=== PATIENT | male | born 1980 | race Caucasian/White ===

== ENCOUNTER 2023-09-27 07:44 | Emergency (ER) | payer OTHER, SELFPAY ==
[2023-09-27 07:46] VITALS: BP 140/82
--- NOTE | 2023-09-27 08:12 | ED.GENMED ---
History of Present Illness
General
Chief Complaint: Anal/Rectal Problem
Source: patient
Exam Limitations: none
Time Seen by Provider: 09/27/23 08:08
Travel History
Have you had any contact with someone who has COVID-19?: No
Do you have any symptoms of coronavirus? Fever > 100 degrees, chills, cough, shortness of breath, sore throat, loss of taste or smell, muscle aches, or headache?: No
History of Present Illness
History of Present Illness:
See MDM
Past History
Past History
ED Past Medical History: None
ED Past Surgical History: None
Social History
Tobacco: Non-smoker
Alcohol: Occasional
Drug: None
Personal:
Living: with family
Employment: Employed
Family History
Family History: Other (Noncontributory)
Phy Exam
Physical Exam
Physical Exam:
See MDM
Course
Orders/Labs/Results
Orders:
Orders
09/27/23 08:12
CT Abd/pelvis W Iv Cont Urgent
Comment:
Reason For Exam: rectal pain
HYDROmorphone [Dilaudid] 1 mg IV NOW STA
09/27/23 08:32
Lidocaine 2% [Lidocaine Uro-Jet 2%] 1 syringe .ROUTE .STK-MED ONE
Lidocaine 2% [Lidocaine Uro-Jet 2%] 1 syringe TOPICAL NOW STA
09/27/23 08:36
Complete Blood Count/With Diff Urgent
09/27/23 10:00
Comprehensive Metabolic Panel Urgent
09/27/23 11:16
HYDROmorphone [Dilaudid] 1 mg .ROUTE .STK-MED ONE
HYDROmorphone [Dilaudid] 1 mg IV NOW STA
Abnormal Lab Results
09/27/23 09/27/23
08:36 10:00
RBC 4.55 L 10^6/uL
(4.70-6.10)
MCV 95.6 H fL
(80.0-94.0)
MCH 33.6 H pg
(27.0-31.0)
ALT 68 H U/L
(0-50)
Total Protein 6.2 L g/dl
(6.3-8.2)
09/27/23 08:36
09/27/23 10:00
Vital Signs
Initial and Last Documented VS:
Initial Vital Signs
Temp Pulse Resp BP Pulse Ox
97.7 F 60 16 140/82 99
09/27/23 07:46 09/27/23 07:46 09/27/23 07:46 09/27/23 07:46 09/27/23 07:46
Last Documented Vital Signs
Temp Pulse Resp BP Pulse Ox
97.7 F 62 16 116/74 98
09/27/23 07:46 09/27/23 09:09 09/27/23 09:09 09/27/23 11:00 09/27/23 11:15
MDM/Problems Addressed
Differential Diagnosis Includes:
HPI and MDM Narrative:
43-year-old male presenting with rectal pain. Patient has been doing this for 5 days. He states he has a history of internal hemorrhoids. He states he had seen someone to discuss removal of these hemorrhoids but opted out of it due to the concern
for recurrence.
On exam, patient is uncomfortable. Rectal exam performed and there is no evidence of external hemorrhoid or fissures. There is tenderness in the perirectal area. Will obtain CT to rule out deep space
Patient states he intermittently develops internal hemorrhoids that protrude forcing him to push them back in.
Physical exam
General: non-toxic
HEENT: protecting airway
Neck: appears supple
CV: No evidence of cyanosis
Resp: No accessory muscle use
Rectal: No fissure or hemorrhoid
Abd: Non-distended
Extremities: No deformities
Neuro: alert
Psych: Normal affect
Skin: Intact
Problems Addressed including Acute and Chronic Conditions affecting care:
1. Perirectal pain
Acuity: acute
Prognosis: stable
Details: Given the normal external exam, will obtain CT to rule out deep space infection
Updates
CT negative for acute pathology. I discussed incidental finding of diverticulosis. Discussed followed up with colorectal
Differential Diagnosis (but not limited to): Perirectal abscess, fissure
Testing considered: Stool studies but he denies diarrhea
Drug therapy (if applicable): OTC meds, please see d/c instruction regarding Rx drugs
Amount and/or Complexity of Data Reviewed
Clinical info obtained from: Patient
External data reviewed: N/A
Labs I independently reviewed (but not limited to): White blood cell count normal
Radiology: The CT scan was personally and independently reviewed. In addition, official CT report reviewed.
Pulse Ox: not hypoxic
EKG independently reviewed: N/A
Environmental Services Assistant: N/A
Critical Care: N/A
Risk of Complication:
Social Determinants of health: Good social support
Discussed with other providers: N/A
Escalation of Care includes Admit/Obs: After being observed in the Emergency Department, pt stable for discharge.
Occasional wrong word or 'sound a like' substitutions may have occurred due to the inherent limitations of voice recognition software. Read the chart carefully and recognize, using context, where substitutions have occurred.
*Critical Care Note
Total Time (30-74mins, 75-104mins- exclusive of procedures): Not Applicable
ED Attending Note
-
Portions of this chart may have been created with voice recognition software.� Occasional wrong word or��sound alike� substitutions may have occurred due to the inherent limitations of voice recognition software.
Discharge Plan
Departure
Patient Disposition: Home (Routine Discharge)
Date of Disposition: 09/27/23
Time of Disposition: 13:07
Patient with high blood pressure during this ER visit?: No
Discharge Problem:
Anal or rectal pain
Prescriptions:
New
diclofenac potassium 50 mg tablet
50 mg PO BID Qty: 20 0RF
oxycodone 5 mg tablet
5 mg PO Q8H PRN (Reason: Pain) Qty: 10 0RF
No Action
ibuprofen 600 MG tablet
600 mg PO Q6H Qty: 30 0RF
hydrocodone-acetaminophen 1 TABLET tablet
1 tab PO Q4HPRN PRN (Reason: severe pain) Qty: 10 0RF
Referrals:
Jaime Sun MD [Active] -
Apple Paris CRNP [Family Provider] -
Activity Restrictions/Additional Instructions:
Please return for any worsening symptoms.
You may return at any time if you have further concerns.
Please follow up with your doctor at the first available appointment, preferably this week.
Given your history of internal hemorrhoids that protrude, please make an appointment with the colorectal surgeon.
You were given a prescription for narcotics. If you require this pain medicine, please take a daily [id number] stool softener to avoid constipation.
Thank you for choosing [facility].
Interventions
Interventions:
*Risk Screen - Suicide Last Done: 09/27/23 07:56
*General Assessment Last Done: 09/27/23 07:46
*Neglect/Abuse Screening Last Done: 09/27/23 07:56
*ED COVID-19 Vaccine History Last Done: 09/27/23 07:46
JQ-Grsyxr-Pnxgttavbn Assessment Last Done: 09/27/23 07:57
ED-Skin Assessment Last Done: 09/27/23 07:57
[2023-09-27 08:43] LABS: % Basophils 0.5 % (0-2); % Eosinophils 3.4 % (0-6); % Immature Granulocytes 0.2 % (0-0.5); % Lymphocytes 25.8 % (20.5-51.1); % Monocytes 8.8 % (1.7-9.3); % Neutrophils 61.3 % (42.2-75.2); Absolute Eosinophils 0.2 10^3/uL (0-0.7); Absolute Lymphocytes 1.6 10^3/uL (1.2-3.4); Absolute Monocytes 0.6 10^3/uL (0.1-0.6); Absolute Neutrophils 3.8 10^3/uL (1.4-6.5); Hematocrit 43.5 % (39.0-52.0); Hemoglobin 15.3 g/dL (13.0-18.0); Mean Corp Hgb Conc. 35.2 g/dL (33.0-37.0); Mean Corpuscular Hgb 33.6 pg (27.0-31.0); Mean Corpuscular Volume 95.6 fL (80.0-94.0); Mean Platelet Volume 10.2 fL (7.4-10.4); Nucleated Red Blood Cells % 0 % (-); Platelet Count 247 10^3/uL (130-400); Red Blood Cell Count 4.55 10^6/uL (4.70-6.10); Red Cell Dist. Width 12.3 % (11.5-14.5); White Blood Cell Count 6.2 10^3/uL (4.8-10.8)
[2023-09-27] MEDS: DILAUDID 1 MG IV ×2 (08:44→11:19)
[2023-09-27] MEDS: LIDOCAINE URO-JET 2% 1 SYRINGE TOPICAL (08:44)
[2023-09-27 09:09] VITALS: BP 123/71
[2023-09-27 10:12] VITALS: BP 101/49
[2023-09-27 11:00] VITALS: BP 116/74
[2023-09-27 11:05] LABS: ALT (SGPT) 68 U/L (0-50); AST (SGOT) 42 U/L (17-59); Albumin 3.8 g/dl (3.5-5.0); Alkaline Phosphatase 58 U/L (38-126); Blood Urea Nitrogen 17 mg/dl (9-20); Calcium 9.5 mg/dl (8.4-10.2); Carbon Dioxide 24 mmol/L (22-30); Chloride 104 mmol/L (98-107); Glucose 99 mg/dl (70-99); Potassium 4.1 mmol/L (3.5-5.1); Sodium 139 mmol/L (135-145); Total Bilirubin 0.6 mg/dl (0.2-1.3); Total Protein 6.2 g/dl (6.3-8.2); eGFR > 60.00
== END 2023-09-27 13:10 | disposition home or self-care (01) ==
LOC: EMR 07:44
PROVIDERS: EMERGENCY PHYSICIAN Student in an Organized Health Care Education/Training Program; FAMILY PHYSICIAN Nurse Practitioner Family
DX: K62.89 Other specified diseases of anus and rectum (principal); K64.8 Other hemorrhoids; K57.90 Diverticulosis of intestine, part unspecified, without perforation or abscess without bleeding
CPT/HCPCS: 99285; 74177; 80053; 85025; Q9967

== ENCOUNTER 2024-03-12 09:56 | Emergency (ER) | payer OTHER, SELFPAY ==
[2024-03-12 10:03] VITALS: BP 112/75
[2024-03-12] MEDS: ADACEL 0.5 ML IM (10:37)
[2024-03-12] MEDS: MOTRIN 600 MG PO (10:37)
[2024-03-12] MEDS: KEFLEX 500 MG PO (10:37)
--- NOTE | 2024-03-12 10:58 | ED.GENMED ---
History of Present Illness
General
Chief Complaint: Skin Problem
Source: patient
Exam Limitations: none
Time Seen by Provider: 03/12/24 10:22
Nursing documentation reviewed up to this point in time: agreed with
History of Present Illness
History of Present Illness:
44-year-old male [id number] presents with right fourth finger MCP joint swelling after laceration 6 days ago on a piece of porcelain
it was not felt to be deep, and he did not blelieve there was any piece that could be inside
he cleaned it out and glued it with skin glue and it seemed to be doing well
he has been working a lot and after work yesterday he developed swelling to hte 4th MCP joint
he has pain with flexion and extension but is able to do both
no redness/streaking, no drainage, no fever/chills
no diabetes
ont a fight bite
Past History
Past History
ED Past Medical History: None
ED Past Surgical History: None
Social History
Tobacco: Non-smoker
Alcohol: Occasional
Drug: None
Personal:
Living: with family
Employment: Employed
Family History
Family History: Other (Noncontributory)
Review of Systems
Review of Systems
Allergies reviewed?: Yes
All Other Systems: Not applicable
Phy Exam
Physical Exam
Physical Exam:
GENERAL: Alert , in no apparent distress, comfortable at rest
HEAD: NCAT
CV: 2+ radial pulse, cap refill intact
NEUROLOGICAL: Alert and oriented, no focal neuro deficits, , 5/5 strength, sensation intact, ambulation slight limp right leg
SKIN: Warm and dry, small 1 cm laceraiton dorsum right 4th MCP joitn
with some STS around it approx 1.5 cm
soft, not fluctuant swelling
no signifiant erythema
no draniage
MUSCULOSKELETAL: sts around the small lacertion right 4th MCP joint dorsum
able to flex, flexor tendon not tender
can fully extend
some pain with flexion
no streaking redness
mild tenderness where it is swollen
PSYCH: Normal and appropriate interaction.
Course
Orders/Labs/Results
Orders:
Orders
03/12/24 10:33
Cephalexin Monohydrate [Keflex] 500 mg PO NOW STA
Ibuprofen [Motrin] 600 mg PO NOW STA
Tetanus/Diphth/Acelpertussis [Adacel] 0.5 ml IM .ONCE ONE
CR Hand - Right Min 3 Views Urgent
Comment:
Reason For Exam: laceration hand, eval fb
Vital Signs
Initial and Last Documented VS:
Initial Vital Signs
Temp Pulse Resp BP Pulse Ox
98.4 F 66 16 112/75 98
03/12/24 10:03 03/12/24 10:03 03/12/24 10:03 03/12/24 10:03 03/12/24 10:03
Last Documented Vital Signs
Temp Pulse Resp BP Pulse Ox
98.4 F 65 16 116/74 98
03/12/24 10:03 03/12/24 11:34 03/12/24 11:34 03/12/24 11:34 03/12/24 11:34
MDM/Problems Addressed
Differential Diagnosis Includes:
hand contusion, laceration, infection, abscess, hematoma,m
MDM/Problems Addressed:
44 y/o M
laceraiton a few days ago to top of his hand
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
worked a lot and developed pain and swelling aroudn the wound
the wound itsself is cloesd and well healed
the surrounding ST is slightly swollen
no erythem
ano warmth
no streaking
mild pain with rom
xray indep reviewed, no fb no fx
will empirically treat with abx
recommend warm compresses
close observatoin
splinted in volar splint by medical equipment repair technician for immobility for healing
f/u with hand
low threshhold delicia return
*Critical Care Note
Total Time (30-74mins, 75-104mins- exclusive of procedures): Not Applicable
ED Attending Note
-
Portions of this chart may have been created with voice recognition software.� Occasional wrong word or��sound alike� substitutions may have occurred due to the inherent limitations of voice recognition software.
Discharge Plan
Departure
Patient Disposition: Home (Routine Discharge)
Date of Disposition: 03/12/24
Time of Disposition: 11:04
Patient with high blood pressure during this ER visit?: No
Condition: Fair
Covid-19: Not Applicable
Discharge Problem:
Hand swelling
Instructions: Cellulitis (Skin Infection), Adult (DC)
Prescriptions:
New
cephalexin 500 mg capsule
500 mg PO QID Qty: 28 0RF
No Action
ibuprofen 600 MG tablet
600 mg PO Q6H Qty: 30 0RF
hydrocodone-acetaminophen 1 TABLET tablet
1 tab PO Q4HPRN PRN (Reason: severe pain) Qty: 10 0RF
diclofenac potassium 50 mg tablet
50 mg PO BID Qty: 20 0RF
oxycodone 5 mg tablet
5 mg PO Q8H PRN (Reason: Pain) Qty: 10 0RF
Referrals:
Apple Paris CRNP [Family Provider] - Follow up in 2-3 days
Artemio Akbar MD [Active] - Follow up in 5-7 days (hand surgery)
Stand Alone Forms: Return to Work
Activity Restrictions/Additional Instructions:
ELEVATE YOUR HAND MUCH POSSIBLE
USE THE HAND SPLINT TO AVOID BENDING YOUR KNUCKLE TO HELP WITH HEALING
TAKE MOTRIN 3 TIMES ADAY FOR PAIN FOR 3-5 DAYS - IT WILL HELP WITH SWELLING
WARM COMPRESSES ON THE HAND OFF AND ON TO HELP WITH HEALING
TO TREAT FOR POSSIBLE INFECTION, YOU SHOULD TRY KEFLEX 4 TIMES A DAY FOR 7 DAYS
FOLLOW UP WITH A HAND SURGEON, CALL FOR AN APPOINTMENT FOR NEXT WEEK
SEE YOUR DOCTOR IN 2 DAYS FOR A WOUND CHECK
IF YOU START HAVING MORE STREAKING OR SWELLING INTO YOUR HAND, REDNESS, FEVER, ETC RETURN IMMEDIATELY
Interventions
Interventions:
*Risk Screen - Suicide Last Done: 03/12/24 10:03
*General Assessment Last Done: 03/12/24 10:03
*Neglect/Abuse Screening Last Done: 03/12/24 10:03
ED- Fall Risk Assessment Last Done: 03/12/24 10:41
*Nursing Disposition Last Done: 03/12/24 11:35
ED-Skin Assessment Last Done: 03/12/24 10:41
Discharge Date and Time
Discharge Date/Time: 03/12/24 11:36
Print Language: KAZAKH
[2024-03-12 11:34] VITALS: BP 116/74
== END 2024-03-12 11:36 | disposition home or self-care (01) ==
LOC: EMR 09:56
PROVIDERS: EMERGENCY PHYSICIAN Student in an Organized Health Care Education/Training Program; FAMILY PHYSICIAN Nurse Practitioner Family
DX: M79.89 Other specified soft tissue disorders (principal); M79.641 Pain in right hand
CPT/HCPCS: 99283; 29125; 73130; 90715